=== PATIENT | female | born 1965 | race Caucasian/White ===

== ENCOUNTER → 2022-01-10 15:15 | Outpatient (CLI) | payer MEDICAID, SELFPAY ==
--- NOTE | ~2022-01-10 | XR_ITS ---
XR hand LT 2V DATE: 01/10/2022 16:52 INDICATION: Seropositive rheumatoid arthritis TECHNIQUE: AP and lateral views COMPARISON: None FINDINGS: There is polyarticular osteoarthritis including triscaphe and first carpometacarpal joint a nd particularly the interphalangeal joints, most severe at the distal interphalangeal joints. No fracture, dislocation, periosteal reaction or bone destruction or erosive change. IMPRESSION: Polyarticular osteoarthritis Reviewed, dictated and finalized at location A.
--- NOTE | ~2022-01-10 | XR_ITS ---
XR knee RT 2V DATE: 01/10/2022 16:52 INDICATION: Seropositive rheumatoid arthritis. Patient fell 2 weeks ago. TECHNIQUE: Standing AP and lateral views COMPARISON: None FINDINGS: Possible suprapatellar knee joint effusion. No fracture or dislocation. Joint spaces are preserved. No radiopaque intra-articular loose body or c hondrocalcinosis. No periosteal reaction or bone destruction. IMPRESSION: Possible joint effusion Reviewed, dictated and finalized at location A. IMPRESSION: Possible joint effusion
--- NOTE | ~2022-01-10 | XR_ITS ---
XR_CERV2-3V_CR DATE: 01/10/2022 16:52 INDICATION: Fall 2 weeks ago. Seropositive rheumatoid arthritis. TECHNIQUE: AP, open-mouth, odontoid and lateral views COMPARISON: None FINDINGS: There is straightening of the cervical spine which may be due to muscle spasm. C1 and C2 are normally aligned and the odontoid process is intact. There is minimal anterolisthesis at C4-5. There is moderately severe degenerative disc disease at C5-6 and severe degenerative disc disease at C6-7. No fracture or dislocation, locked facet or prevertebral soft tissue swelling. There is degenerative change at the uncovertebral joints, most prominent at C6-7. IMPRESSION: Straightening of cervical spine which may due to due to muscle spasm Minimal anterolisthesis C4-5 Moderately severe degenerative disc disease at C5-C6 Severe degenerative disc disease at C6-7 Reviewed, dictated and finalized at Location A. Reviewed, dictated and finalized at location A. IMPRESSION: Straightening of cervical spine which may due to due to muscle spas m Minimal anterolisthesis C4-5 Moderately severe degenerative disc disease at C5-C6 Severe degenerative disc disease at C6-7
--- NOTE | ~2022-01-10 | XR_ITS ---
XR knee LT 2V DATE: 01/10/2022 16:52 INDICATION: Fall 2 weeks ago. Seropositive rheumatoid arthritis. TECHNIQUE: AP and lateral standing views COMPARISON: None FINDINGS: Suprapatellar knee joint effusion is suggested. No fracture or dislocation, periosteal reaction or bone destruction. Medial and lateral compartment j oint spaces appear well preserved. No radiopaque intra-articular loose body or chondrocalcinosis. IMPRESSION: Possible suprapatellar knee joint effusion Reviewed, dictated and finalized at location A.
--- NOTE | ~2022-01-10 | XR_ITS ---
XR chest 2V DATE: 01/10/2022 16:52 INDICATION: Seropositive rheumatoid arthritis TECHNIQUE: 2 views COMPARISON: 05/10/2013 AP and lateral chest FINDINGS: Bilateral breast implants. Dextroscoliosis of the thoracolumbar spine. Diffuse osteopenia. Bilateral hyperinflation suggesting obstructive airways disease. No pulmonary infiltrate or consolida tion, pleural effusion or pulmonary vascular congestion or pneumothorax. Normal heart size. Mild aortic calcification. No pleural effusion or pulmonary vascular congestion or pneumothorax. IMPRESSION: Bilateral hyperinflation suggesting obstructive airways disease No active pulmonary disease Reviewed, dictated and finalized at location A.
--- NOTE | ~2022-01-10 | XR_ITS ---
XR hand RT 2V DATE: 01/10/2022 16:52 INDICATION: Seropositive rheumatoid arthritis TECHNIQUE: AP and lateral views COMPARISON: None FINDINGS: There is polyarticular osteoarthritis including triscaphe, first carpometacarpal and the me tacarpophalangeal and interphalangeal joints. There is most prominent involvement at the distal inter phalangeal joints of the digits. No fracture, dislocation, periosteal reaction or bone destruction. No erosive change is noted. There is osteopenia. IMPRESSION: Polyarticular osteoarthritis Reviewed, dictated and finalized at location A.
--- NOTE | ~2022-01-10 | XR_ITS ---
XR ankle LT 2V DATE: 01/10/2022 16:52 INDICATION: Fall 2 weeks ago. Seropositive rheumatoid arthritis. TECHNIQUE: AP and lateral views COMPARISON: None FINDINGS: Slight plantar and slight posterior calcaneal enthesopathy. Mild to moderate osteopenia. No fracture or dislocation of the ankle or disruption of the ankle mortise. No periosteal reaction or bone destruction. IMPRESSION: Slight plantar and posterior calcaneal enthesopathy; no associated erosive change or bertha ostitis Reviewed, dictated and finalized at location A. IMPRESSION: Slight plantar and posterior calcaneal enthesopathy; no associated erosive change or periostitis
--- NOTE | ~2022-01-10 | XR_ITS ---
XR ankle RT 2V DATE: 01/10/2022 16:52 INDICATION: Fall 2 weeks ago. Seropositive rheumatoid arthritis. TECHNIQUE: 2 views COMPARISON: None FINDINGS: Slight posterior calcaneal enthesopathy. Mild diffuse osteopenia. No fracture or dislocation of the ankle or disruption of the ankle mortise. No periosteal reaction or bone destruction. IMPRESSION: Slight posterior calcaneal enthesopathy Reviewed, dictated and finalized at location A.
--- NOTE | ~2022-01-10 | XR_ITS ---
XR foot LT 2V DATE: 01/10/2022 16:52 INDICATION: Fall 2 weeks ago. Seropositive rheumatoid arthritis. TECHNIQUE: AP and lateral views COMPARISON: None FINDINGS: There is slight plantar and posterior calcaneal enthesopathy without associated erosive soham nge or periostitis. There is virtual obliteration of first metatarsophalangeal joint joint space with severe spurring. Th ere is prominent osteoarthritic change at the distal interphalangeal joint of the second toe. No fracture or dislocation, periosteal reaction or bone destruction. IMPRESSION: Severe osteoarthritis at first metatarsophalangeal joint with very prominent spurring Slight plantar and posterior calcaneal enthesopathy without associated erosive change or periostitis Reviewed, dictated and finalized at location A.
--- NOTE | ~2022-01-10 | XR_ITS ---
XR thoracic spine 2V DATE: 01/10/2022 16:52 INDICATION: Recent fall 2 weeks ago. Seropositive rheumatoid arthritis. TECHNIQUE: AP, lateral, swimmer views COMPARISON: None FINDINGS: Moderately severe degenerative disease at C5-6 and severe degenerative disc disease at C6-7 . Diffuse osteopenia. There is 25 degrees levoscoliosis measured from T1 to T9. There is approximately 40 degrees rotatory dextroscoliosis measured from T9 to L3. No fracture or dislocation or bone destruction of the thoracic spine is evident. The thoracic pedicle s appear to be intact. No paraspinal soft tissue thickening. There is mild degenerative spurring of t he thoracic spine. IMPRESSION: Scoliosis Osteopenia Mild degenerative spurring Reviewed, dictated and finalized at location A.
--- NOTE | ~2022-01-10 | XR_ITS ---
XR foot RT 2V DATE: 01/10/2022 16:52 INDICATION: Fall 2 weeks ago. Seropositive rheumatoid arthritis. TECHNIQUE: AP and lateral views COMPARISON: None FINDINGS: There is severe joint space narrowing and spurring at the first metatarsophalangeal joint c onsistent with severe osteophytosis. There is hallux valgus and bunion deformity. Slight posterior calcaneal enthesopathy without associated erosive change or periostitis. No fracture or dislocation, periosteal reaction or bone destruction. IMPRESSION: Severe osteoarthritis at the first metatarsophalangeal joint Mild hallux valgus and bunion deformity Slight posterior calcaneal enthesopathy Reviewed, dictated and finalized at location A.
--- NOTE | ~2022-01-10 | XR_ITS ---
XR lumbar spine 2-3V DATE: 01/10/2022 16:52 INDICATION: Fall 2 weeks ago. Seropositive rheumatoid arthritis. TECHNIQUE: Standing AP, lateral and coned lateral lumbosacral views COMPARISON: None FINDINGS: Diffuse osteopenia. There is prominent rotatory dextroscoliosis of the thoracolumbar spine. There is multilevel degenerative disc disease, most pronounced at L1-L2 3. No fracture or bone destruction is evident. The sacroiliac joints are intact. Surgical clips, right upper quadrant, likely due to cholecystectomy. IMPRESSION: Prominent rotatory dextroscoliosis of the lower thoracic and lumbar spine Multilevel degenerative disc disease, especially L1-2 and L2-3 Osteopenia Reviewed, dictated and finalized at location A.
== END ==
PROVIDERS: PCP Internal Medicine Geriatric Medicine; Visit Provider Physician Assistant
DX: M85.872 Other specified disorders of bone density and structure, left ankle and foot (principal); M85.871 Other specified disorders of bone density and structure, right ankle and foot; Z51.81 Encounter for therapeutic drug level monitoring; Z79.899 Other long term (current) drug therapy; M05.742 Rheumatoid arthritis with rheumatoid factor of left hand without organ or systems involvement; M05.671 Rheumatoid arthritis of right ankle and foot with involvement of other organs and systems; M20.11 Hallux valgus (acquired), right foot; M77.31 Calcaneal spur, right foot; M77.32 Calcaneal spur, left foot; M85.88 Other specified disorders of bone density and structure, other site; M41.9 Scoliosis, unspecified; M47.813 Spondylosis without myelopathy or radiculopathy, cervicothoracic region; M05.741 Rheumatoid arthritis with rheumatoid factor of right hand without organ or systems involvement; Z98.86 Personal history of breast implant removal
CPT/HCPCS: 71046; 72040; 72070; 72100; 73120; 73560; 73600; 73620

== ENCOUNTER → 2022-01-19 10:45 | Outpatient (CLI) | payer MEDICAID, SELFPAY ==
--- NOTE | ~2022-01-19 | XR_ITS ---
EXAMINATION: XR shoulder LT min 2V DATE: 01/19/2022 12:14 INDICATION: Seropositive rheumatoid arthritis. Chronic left shoulder pain. TECHNIQUE: 4 views of left shoulder were obtained. COMPARISON: None. FINDINGS: Bone alignment is normal. No fracture. There is mild osteoarthritis of glenohumeral joint c haracterized by tiny osteophytes. Acromioclavicular joint is normal. IMPRESSION: 1. Mild glenohumeral joint osteoarthritis. Reviewed, dictated and finalized at location A.
--- NOTE | ~2022-01-19 | DEXA_ITS ---
Bone Density Report Name: MACY DOAN Age: 56 Sex: Female Ethnicity: White Date of : 1965 Indication: postmenopausal; screening for osteoporosis; history of glucocorticoids; rheumatoid arthritis; Referring Provider: Nikos, Izaiah Ladd Study: Bone densitometry was performed. Exam Date: January 19, 2022 Accession number: [id number] Bone Density: Region BMD T-score Z-score Classification AP Spine (L1-L4) 0.991 -0.5 0.7 Normal Femoral Neck (Left) 0.691 -1.4 -0.3 Osteopenia Total Hip (Left) 0.837 -0.9 -0.1 Normal Femoral Neck (Right) 0.722 -1.1 0.0 Osteopenia Total Hip (Right) 0.762 -1.5 -0.7 Osteopenia Total Hip Mean 0.800 -1.2 -0.4 Osteopenia World Health Organization criteria for BMD impression classify patients as: Normal (T-score at or above -1.0), Osteopenia (T-score between -1.0 and -2.5), or Osteoporosis (T-score at or below -2.5). 10-year Fracture Risk(1): Major Osteoporotic Fracture 13% Hip Fracture 2.3% Reported Risk Factors: [place] (), Neck BMD=0.691, BMI=20.9, smoking, glucocorticoids, rheumatoid arthritis (1) FRAX(R) Version 3.08. Fracture probability calculated for an untreated patient. Fracture probability may be lower if the patient has received treatment. Clinical Information Provided by Patient: Smokes Has taken Glucocorticoids Has rheumatoid arthritis Patient maximum height was 64.0 Menopause Age: 52 No regular weight bearing exercise Drinks caffeinated beverages Onset of menses at age 15 Number of children 0 Missed period for more than 6 months in a row Impression: The patient has low bone mass, based on the Right Total Hip T-score. The patient has an estimated ten-year risk of hip fracture of 2.3% and an estimated ten-year risk of major fracture of 13%, based on the WHO FRAX algorithm. The patient has risk factors, including: smoking, history of glucocorticoid therapy. Discussion: BONE DENSITY IS LOW AT ONE OR MORE SKELETAL SITES. This patient's lowest T-score is low at one or more skeletal sites. It meets the World Health Organization's (WHO) criteria for ?low bone mass? (T-score between -1.0 and -2.5). The patient's 10-year risk of fracture as calculated by FRAX is less than the threshold where pharmacological therapy is recommended by the National Osteoporosis Foundation (NOF). However, all treatment decisions require clinical judgment and consideration of individual patient factors, including patient preferences, comorbidities, previous drug use, risk factors not captured in the FRAX model (e.g., frailty, falls, vitamin D deficiency, increased bone turnover, interval significant decline in bone density) and possible under or overestimation of fracture risk by FRAX. The patient should follow a healthful lifestyle (good nutrition with adequate calcium and v
--- NOTE | ~2022-01-19 | XR_ITS ---
EXAMINATION: XR shoulder RT min 2V DATE: 01/19/2022 12:14 INDICATION: Seropositive rheumatoid arthritis. Chronic right shoulder pain. TECHNIQUE: 4 views of right shoulder were obtained. COMPARISON: None. FINDINGS: Bone alignment is normal. No acute fracture. There is an old healed fracture of right sixth rib. There is mild osteoarthritis of glenohumeral joint and acromioclavicular joint characterized by tiny osteophytes. IMPRESSION: 1. Mild polyarticular osteoarthritis. Reviewed, dictated and finalized at location A.
== END ==
PROVIDERS: PCP Internal Medicine Geriatric Medicine; Visit Provider Physician Assistant
DX: M19.012 Primary osteoarthritis, left shoulder (principal); M19.011 Primary osteoarthritis, right shoulder; M85.851 Other specified disorders of bone density and structure, right thigh; M05.9 Rheumatoid arthritis with rheumatoid factor, unspecified; G89.29 Other chronic pain; M85.852 Other specified disorders of bone density and structure, left thigh; Z51.81 Encounter for therapeutic drug level monitoring; Z79.52 Long term (current) use of systemic steroids
CPT/HCPCS: 73030; 77080

== ENCOUNTER 2024-10-26 19:52 | Emergency (ER) | payer OTHER, SELFPAY ==
[2024-10-26 19:57] VITALS: BP 155/118; PULSE 80; RESP 20; TEMP 36.1; O2SAT 99
--- NOTE | 2024-10-26 19:59 | ED.SKABFB ---
HPI - Skin/Abscess/Foreign Bdy General Chief complaint: Skin/Abscess/Foreign Body Stated complaint: Spider Bite? Time Seen by Provider: 10/26/24 20:00 Source: patient and RN notes reviewed Mode of arrival: ambulatory Limitations: dementia History of Present Illness HPI narrative: 58-year-old female presents with concern for possible spider bite on her left foot. She reports a lateral blistered area that is tender and red. Reports she feels like her ankle is swollen she denies getting bit by anything that she knows of, but she just moved into a new house and has been unpacking boxes. Denies any injury or trauma. Reports general malaise today. complaint: other (Redness) Related Data Allergies Allergy/AdvReac Type Severity Reaction Status Date / Time No Known Drug Allergies Allergy Unknown Unverified 04/27/19 18:08 Review of Systems Review of Systems: CONSTITUTIONAL: Denies malaise, chills, sweats, or fever. EYES: Denies redness, or discharge. ENT: Denies rhinorrhea, congestion, swollen lips, swollen tongue CARDIOVASCULAR: Denies chest pain, palpitations, or edema. RESPIRATORY: Denies cough or dyspnea. GASTROINTESTINAL: Denies abdominal pain, nausea, vomiting SKIN: Reports redness, swelling tenderness to the left lateral foot. Denies purulent drainage, vesicles, bullae, numbness, pain beyond proportion MUSCULOSKELETAL: Denies joint pain or myalgia. NEUROLOGIC: Denies headache. All systems reviewed & are unremarkable except as noted in HPI and below PMFSH Social History Social History Smoking status: Heavy tobacco smoker Comments At time of signature, agree with nursing past medical, surgical, social and family history. There is no relevant family history pertinent to the presenting complaint Exam Narrative: GENERAL: Well-appearing, well-nourished, and in no acute distress. HEAD: Normocephalic, atraumatic. EYES: PERRLA, conjunctivae clear ENT: Mucous membranes moist. NECK: Supple. No lymphadenopathy CHEST: Clear to auscultation. No respiratory distress. HEART: Regular rate and rhythm. SKIN: Warm, dry. Erythema, induration, tenderness, warmth with sharp margins noted the left lateral foot. No vesicles, bullae, necrosis, ecchymosis, crepitus noted. NEURO: Alert and oriented x3. PSYCH: Normal mood and affect Course Course Emergency Course: Patient is aware of diagnosis, understands and agrees to treatment plan. Anticipatory guidance given. Patient agrees to follow-up as directed and is aware of reasons to seek care at the emergency department. Portions of this record may have been created with voice recognition software Level of Care: [facility] Visit Vital Signs Vital signs: Reviewed. MDM - Skin/Abscess/Foreign Bdy MDM Narrative Medical decision making narrative: I evaluated this in the [facility]. History is obtained from patient who is an independent historian and physical exam was performed.? Available medical records were reviewed. ? Exam findings and relevant testing show no acute concerns or changes; patient is non-toxic appearing and is in no distress. No risk factors or findings concerning for epidural abscess, diskitis, vertebral osteomyelitis, cord compression, cauda equina, vertebral fracture or bone malignancy, AAA, or pyelonephritis. Patient instructed to consider further imaging and workup through their primary care physician as an outpatient if symptoms persist. Does not appear at this time to be erythema multiforme, bullous, SJS, TEN; no evidence at this time to suggest RMSF, NSTI, endocarditis or Lyme disease; patient looks well, nontoxic and is tolerating oral intake; no neurologic signs or symptoms; no headache, photophobia or neck pain; afebrile.? Patient does not have history of of penetrating trauma, laceration, blunt trauma, recent surgery, immunosuppression, malignancy, obesity, alcoholism, corticosteroid use.? Discussed the importance of follow-up, patient agrees; question, cellulitis versus necrotizing soft tissue infection versus abscess.?? Patient is appropriate for outpatient treatment and follow-up. Critical Care Time Critical Care Time Critical Care Time: No Discharge Plan Discharge Clinical Impression: Cellulitis Patient Disposition: Home, Self-Care Condition: Stable Instructions: Antibiotic Form, Cellulitis (ED) Additional Instructions: Please follow up with your Primary Care Doctor within 48-72 hours - call for an appointment. Rest and elevate affected area; apply moist heat 3-4 times daily for 10-15 minutes. Take Motrin 600mg every 8 hours with food for pain. Please take Antibiotics as directed. If you experience any worsening redness, swelling, streaking (red lines), fever or chills please go to the ER Patient Language: Com[place]an Prescriptions: New penicillin V potassium 500 mg tablet 500 mg PO Q12H 10 Days Qty: 20 0RF Follow-up/Referrals: UNKNOWN,DOCTOR [Primary Care Provider] - Time of Disposition: 20:10
== END 2024-10-26 20:14 | disposition home or self-care (01) ==
PROVIDERS: Emergency Provider Nurse Practitioner
DX: L03.116 Cellulitis of left lower limb (principal); F17.200 Nicotine dependence, unspecified, uncomplicated
CPT/HCPCS: 99213; G0463